=== PATIENT | male | born 1995 | race Caucasian/White ===

== ENCOUNTER 2022-05-11 01:48 | Emergency (ER) | payer OTHER ==
[2022-05-11] MEDS ORDERED: HIV POST EXPOSURE PROPHYLAXIS KIT NR ONE (01:52)
[2022-05-11] MEDS ORDERED: HIV POST EXPOSURE PROPHYLAXIS KIT PO ONE (01:52)
[2022-05-11 01:56] VITALS: BP 113/81; PULSE 73; RESP 16; TEMP 97.6; BMI 26.6
[2022-05-11 03:30] LABS: HEMOGLOBIN 14.4 GM/dL (11.7-16.9); MCHC 35.1 g/dl (32.0-35.9); MEAN CELL VOLUME 85.3 fl (80-96); MEAN PLT VOLUME 7.6 fl (7.5-11.1); PLATELET COUNT 264 10^3/uL (134-434); RDW 12.5 % (11.9-15.9); WHITE BLOOD COUNT 6.1 K/mm3 (4.0-10.0)
[2022-05-11 03:56] LABS: CALCIUM 9.2 mg/dL (8.5-10.1)
[2022-05-11 03:57] LABS: ALBUMIN 4.5 g/dl (3.4-5.0); BLOOD UREA NITROGEN 21.8 mg/dL (7-18)
[2022-05-11 04:00] LABS: CREATININE 0.9 mg/dL (0.55-1.3)
[2022-05-11 04:02] LABS: BILIRUBIN,TOTAL 0.4 mg/dL (0.2-1); TOT PROT 7.4 g/dl (6.4-8.2)
[2022-05-11 07:34] LABS: HIV INTERPRETATION NEGATIVE (NEGATIVE)
== END 2022-05-11 02:40 | disposition home or self-care (01) ==
LOC: FER 01:48
DX: Z77.21 Contact with and (suspected) exposure to potentially hazardous body fluids (principal)
CPT/HCPCS: 36415; 80053; 85027; 87389; 87517; 87522; 99283-25

== ENCOUNTER 2022-07-25 00:23 | Emergency (ER) | payer OTHER ==
[2022-07-25 00:29] VITALS: BP 123/61; PULSE 73; RESP 16; TEMP 97.7; BMI 26.6
== END 2022-07-25 01:17 | disposition home or self-care (01) ==
LOC: FER 00:23
DX: S90.32XA Contusion of left foot, initial encounter (principal); W22.8XXA Striking against or struck by other objects, initial encounter; Y35.893A Legal intervention involving other specified means, suspect injured, initial encounter
CPT/HCPCS: 73630-TC-LT; 99283-25

== ENCOUNTER 2023-08-30 | Emergency (ER) | payer OTHER ==
[2023-08-30 00:23] VITALS: RESP 18; BMI 26.6
[2023-08-30 00:33] VITALS: BP 122/77; PULSE 91; TEMP 98.3
[2023-08-30] MEDS ORDERED: DIPHTH,PERTUSS(ACELL),TET 0.5 ML DISP.SYRIN IM ONE (00:34)
[2023-08-30] MEDS: DIPHTH,PERTUSS(ACELL),TET 0.5 ML DISP.SYRIN IM ONE (00:37)
== END 2023-08-30 00:46 | disposition home or self-care (01) ==
LOC: FER
PROC: 3E0234Z Introduction of Serum, Toxoid and Vaccine into Muscle, Percutaneous Approach (ICD-10-PCS; principal; 2023-08-30)
DX: S60.410A Abrasion of right index finger, initial encounter (principal); S60.414A Abrasion of right ring finger, initial encounter; S80.211A Abrasion, right knee, initial encounter; W50.0XXA Accidental hit or strike by another person, initial encounter; Y93.72 Activity, wrestling
CPT/HCPCS: 90715; 99282-25